=== PATIENT | female | born 1985 | race Caucasian/White ===

== ENCOUNTER 2021-03-06 00:47 | Observation (INO) | payer OTHER, SELFPAY ==
--- NOTE | 2021-03-06 01:00 | PC.NURSE ---
This patient, Purvi Medina, admitted to the OB room Labor/Delivery/Recovery 105 for observation. Patient/family oriented to hospital policies and general routines including ID bracelet, bed and alarms, visiting hours, pain management, procedures, bathroom and other care routines, personal items, smoking policy, room service/diet, and visiting hours. Patient/Family are encouraged to report perceived risks to care and to ask questions if they do not understand what they are told or what they should do.
[2021-03-06 01:10] VITALS: BMI 32.2
--- NOTE | 2021-03-06 01:15 | PC.NURSE ---
Pt states she had pain in abdomen since yesterday. Pt concerned that when she cleaned her umbilicus area something from the babies umbilical cord came out . States this made her very nauseated and has never happened with in past. Reassurance given to pt that there is no correlation with her umbilicus and babies. Abdomen soft and non tender. States loose stool, No constipation. No fever.
[2021-03-06 01:52] VITALS: BP 99/55; PULSE 81
--- NOTE | 2021-03-06 02:00 | PC.NURSE ---
Cervix closed. Occasional contraction with irritability. Abdomen soft. Dr. Suero advised of pt assessment. Will discharge home. Pt to call office for follow up (missed last appointment) and pt to return to OB for NST.
--- NOTE | 2021-03-09 15:55 | PM.OBTRLD ---
OB - Triage/Final Diagnosis Visit Information Comments/Additional reasons for admission: I have assessed the risk for this patient, Purvi Medina, and determined that she would benefit from observation care. Final Diagnosis (1) Vaginal discharge during : Code(s): O26.899 - Other specified related conditions, unspecified trimester; N89.8 - Other specified noninflammatory disorders of vagina Status: Acute
== END 2021-03-06 02:10 | disposition home or self-care (01) ==
PROVIDERS: Admitting Provider Obstetrics & Gynecology; PCP Obstetrics & Gynecology; Visit Provider Obstetrics & Gynecology
DX: O26.899 Other specified pregnancy related conditions, unspecified trimester (principal); N89.8 Other specified noninflammatory disorders of vagina; Z3A.00 Weeks of gestation of pregnancy not specified
CPT/HCPCS: G0378; G0379

== ENCOUNTER 2021-03-07 13:18 | Outpatient (RCR) | payer OTHER, SELFPAY ==
[2021-03-07 14:34] VITALS: BP 106/61; PULSE 95
== END 2021-04-04 10:06 | disposition home or self-care (01) ==
LOC: ANHOBOP 13:18
PROVIDERS: PCP Obstetrics & Gynecology; Visit Provider Obstetrics & Gynecology
DX: O09.293 Supervision of pregnancy with other poor reproductive or obstetric history, third trimester (principal); Z3A.35 35 weeks gestation of pregnancy
CPT/HCPCS: 59025

== ENCOUNTER 2021-03-15 14:52 | Emergency (ER) | payer OTHER, SELFPAY ==
[2021-03-15 15:06] VITALS: BP 119/71; PULSE 107; RESP 16; TEMP 37.1; O2SAT 100
[2021-03-15 15:33] LABS: Basophils Percent Auto 0.1 % (0.2-1.2); Eosinophils Percent Auto 0.1 % (0-4.4); Hematocrit 34.9 % (37.0-47.0); Hemoglobin 11.7 g/dL (12.0-15.0); Immature Granulocyte Absolute 0.07 K/mm3 (0.00-0.031); Lymphocytes Absolute Auto 1.08 K/mm3 (0.9-3.2); Lymphocytes Percent Auto 15.9 % (18.3-44.2); Mean Corpuscular HGB Conc 33.5 g/dl (32-36); Mean Corpuscular Hemoglobin 31.3 pg (26-34); Mean Corpuscular Volume 93.3 fl (80-100); Mean Platelet Volume 10.1 fl (7.4-10.4); Monocytes Absolute Auto 0.2 K/mm3 (0.1-0.6); Monocytes Percent Auto 3.4 % (2.6-8.5); Neutrophils Absolute Auto 5.4 K/mm3 (1.3-6.7); Neutrophils Percent Auto 79.5 % (45.5-73.1); Platelet Count Result 220 k/mm3 (150-375); Red Blood Count 3.74 M/mm3 (4.2-5.4); Red Cell Distribution Width 13.3 % (11.5-14.5); White Blood Count 6.8 K/mm3 (4.5-10.0)
[2021-03-15 15:41] LABS: Alanine Aminotransferase 11 U/L (4-35); Albumin Level 3.7 g/dL (3.5-5.1); Alkaline Phosphatase 191 U/L (38-126); Anion Gap 10 mmol/L (8-16); Aspartate Amino Transferase 23 U/L (14-36); Bilirubin,Total 0.4 mg/dL (0.2-1.3); Blood Urea Nitrogen 4 mg/dL (7-17); Calcium 8.3 mg/dL (8.4-10.2); Carbon Dioxide 18 mmol/L (22-30); Chloride 102 mmol/L (98-107); Estimated CRCL calculation 130 ml/min; Estimated Glomerular Filt Rate > 60; Glucose 117 mg/dL (65-110); Lipase 91 U/L (23-300); Potassium 3.1 mmol/L (3.4-5.0); Sodium 130 mmol/L (137-145)
[2021-03-15] MEDS: SODIUM CHLORIDE 0.9% IV 1,000 ML 999 ML IV CONT (16:30)
--- NOTE | 2021-03-15 16:37 | ED.NAVMDI ---
HPI - Nausea/Vomiting/Diarrhea General Chief complaint: Nausea/Vomiting/Diarrhea Stated complaint: nausea, vomiting- 9mo Time Seen by Provider: 03/15/21 16:10 Source: patient Mode of arrival: ambulatory Limitations: no limitations History of Present Illness HPI Narrative: Patient is a 36-year-old female who is 9 months complaining of nausea and vomiting nonbilious nonbloody accompanied by diarrhea for the past 2 days. Patient denies any chest pain, shortness of breath, abdominal pain, vaginal bleeding or discharge. Positive for gross movement. Denies any spontaneous rupture membranes. Related Data Allergies Allergy/AdvReac Type Severity Reaction Status Date / Time latex Allergy Mild Unknown Verified 03/15/21 16:20 Review of Systems Review of Systems: All systems reviewed & are unremarkable except as noted in HPI and below Constitutional: Constitutional: Denies body ache(s), Denies chills, Denies excessive sweating, Denies fatigue, Denies fever(s), Denies headache(s), Denies lethargy, Denies malaise, Denies weakness and Denies weight loss Eyes: Eyes: Denies blurry vision, Denies change in vision and Denies loss of vision ENT: Denies dizziness, Denies ear discharge, Denies headache(s), Denies lip swelling, Denies epistaxis, Denies nasal congestion, Denies neck pain, Denies throat swelling and Denies tongue swelling Cardiovascular: Cardiovascular: Denies chest pain, Denies chest pain at rest, Denies chest pain with activity, Denies diaphoresis, Denies rapid heart rate, Denies edema, Denies irregular heart rhythm, Denies lightheadedness, Denies palpitations, Denies dyspnea and Denies dyspnea on exertion Respiratory: Respiratory: Denies chest congestion, Denies cough, Denies hemoptysis, Denies dyspnea and Denies dyspnea on exertion Gastrointestinal: Gastrointestinal: Denies abdominal pain, Denies melena, Denies hematochezia, Denies diarrhea and Denies hematemesis Musculoskeletal: Musculoskeletal: Denies abnormal gait, Denies deformity, Denies joint swelling, Denies limited range of motion, Denies neck pain and Denies numbness Neurologic: Denies Abnormal speech present, Denies abnormal gait, Denies confusion, Denies dizziness, Denies headache(s), Denies focal weakness, Denies loss of vision, Denies numbness, Denies Other visual disturbances, Denies Sensory deficit (Neuro) and Denies weakness Psychiatric: Psychiatric: Denies confusion, Denies depression, Denies auditory hallucinations, Denies homicidal ideation and Denies suicidal ideation Endocrine: Endocrine: Denies cold intolerance, Denies excessive sweating, Denies fatigue, Denies heat intolerance and Denies palpitations Hematologic/Lymphatic: Hematologic/Lymphatic: Denies easy bleeding and Denies easy bruising Allergic/Immunologic: Allergic/Immunologic: Denies lip swelling, Denies throat swelling and Denies tongue swelling PMFSH Comments Past medical history: None Family history: Noncontributory Social history: Non-smoker no EtOH or drug use Exam Const: General: cooperative, healthy appearing, comfortable, no acute distress, well developed, alert and awake; No confusion Orientation/consciousness: oriented to person, oriented to place, oriented to time, patient oriented x3 and No confusion Limitations: no limitations HENMT: Head: normal to inspection, normocephalic and atraumatic Ears: hearing grossly normal bilaterally, TM normal on the right and TM normal on the left General nose exam: Normal external nose present, Normal nares present and No nasal discharge present Face and sinus: normal facial exam Mouth: Yes Normal oral and palatal mucosa present, Yes lip normal, Yes tongue normal and Yes oropharynx normal Throat: posterior oropharynx normal, tonsils normal and uvula midline Eyes: General: appearance normal, both eyes and all related structures Pupils: Equal, round and reactive pupils present EOM: EOMs intact bilaterally Neck: Neck: normal visual
[2021-03-15 16:40] LABS: Add Urine Microscopic? YES; Appearance Urine Cloudy (Clear); Bacteria Urine Trace /hpf; Bilirubin Urine 1+ (Negative); Color Urine Amber (Yellow); Glucose Urine UA Negative (Negative); Ketones Urine 2+ mg/dL (Negative); Leukocyte Esterase Ur 1+ LEU/UL (Negative); Mucus Urine Heavy /lpf; Nitrate Urine Negative (Negative); Protein Urine 2+ mg/dL (Negative); Specific Grav Ur 1.026 (1.001-1.035); Squamous Epithelial Cell Urine Many /hpf (Few); WBC Urine 21-30 /hpf
[2021-03-15 17:16] LABS: Blood Urine Negative (Negative)
[2021-03-15] MEDS: PROMETHAZINE HCL 25 MG/ML AMPUL 12.5 MG IV PUSH (17:17)
[2021-03-15] MEDS: POTASSIUM CHLORIDE 20 MEQ PACKET (FOR LIQUID) 40 MEQ PO (18:19)
[2021-03-15 19:23] VITALS: BP 108/62; PULSE 88; RESP 18; O2SAT 96
[2021-03-16 18:23] LABS: SARS-CoV-2 RNA PCR Positive
== END 2021-03-15 19:23 | disposition home or self-care (01) ==
PROVIDERS: Emergency Medicine; Emergency Provider Emergency Medicine; PCP Obstetrics & Gynecology
DX: O98.513 Other viral diseases complicating pregnancy, third trimester (principal); U07.1 COVID-19; O99.613 Diseases of the digestive system complicating pregnancy, third trimester; K52.9 Noninfective gastroenteritis and colitis, unspecified; O23.43 Unspecified infection of urinary tract in pregnancy, third trimester; Z3A.00 Weeks of gestation of pregnancy not specified
CPT/HCPCS: 36415; 80053; 81001; 83690; 85025; 87086; 87088; 96361; 96374; 99284; A9270; C9803; J2550; J7030; U0003; U0005

== ENCOUNTER 2021-03-22 16:28 | Inpatient (IN) | payer OTHER, SELFPAY ==
[2021-03-22] VITALS (18 sets, daily range): BP systolic 88–148; BP diastolic 41–123; PULSE 76–157; RESP 18; TEMP 36.3–37; O2SAT 100; BMI 32.4
--- NOTE | 2021-03-22 17:23 | LDADM ---
This patient, Purvi Medina, was admitted to Labor/Delivery/Recovery 106 on 03/22/21 at 16:28. Plans for labor, pain management and were discussed with patient. Patient/family oriented to hospital policies and general routines including ID bracelet, bed and alarms, visiting hours, pain management, procedures, bathroom and other care routines, personal items, smoking policy, room service/diet and guest tray routines, security routines, and visiting hours. Patient/Family are encouraged to report perceived risks to care and to ask questions if they do not understand what they are told or what they should do. See OBIX for further documentation.
--- NOTE | 2021-03-22 17:25 | WPDANESEPP ---
Anes - Eval Pre Procedure Date/Time: 03/22/21 17:25 Pre Op Diagnosis: ror Patient Data Age: 36 Gender: F Height: Weight: Last Vital Signs Pulse 105 H 03/22/21 16:46 BP 115/61 03/22/21 16:46 Allergies Allergy/AdvReac Type Severity Reaction Status Date / Time latex Allergy Mild Unknown Verified 03/15/21 16:20 Home Medications Medication Instructions Recorded Confirmed Type vit no.[id number] 1 tablet PO DAILY 03/22/21 03/22/21 History [Classic ] Patient hx anesthesia problems: none Family hx anesthesia problems: none PMFSH Past Medical History Medical History Drug abuse Limited care Overweight (BMI 25.0-29.9) and not yet delivered Social History Social History Smoking packs per day: 1 Smoking cigarettes per day: 20.0 Smoking status: Current every day smoker Substance use: current Substance use type: marijuana Spiritual care concerns: No Exam Day of Procedure 03/22/21 17:25 Patient weight: overweight Airway: Mallampati scale class II Neurological: alert and oriented
[2021-03-22 17:35] LABS: Basophils Percent Auto 0.3 % (0.2-1.2); Eosinophils Absolute Auto 0.1 K/mm3 (0-0.3); Eosinophils Percent Auto 1.3 % (0-4.4); Hematocrit 31.2 % (37.0-47.0); Hemoglobin 10.4 g/dL (12.0-15.0); Immature Granulocyte Absolute 0.06 K/mm3 (0.00-0.031); Immature Granulocyte Percent A 0.8 % (0-0.5); Lymphocytes Absolute Auto 1.47 K/mm3 (0.9-3.2); Mean Corpuscular HGB Conc 33.3 g/dl (32-36); Mean Corpuscular Hemoglobin 31.8 pg (26-34); Mean Corpuscular Volume 95.4 fl (80-100); Mean Platelet Volume 10.2 fl (7.4-10.4); Monocytes Absolute Auto 0.4 K/mm3 (0.1-0.6); Monocytes Percent Auto 4.8 % (2.6-8.5); Neutrophils Absolute Auto 5.7 K/mm3 (1.3-6.7); Neutrophils Percent Auto 73.8 % (45.5-73.1); Platelet Count Result 278 k/mm3 (150-375); Red Blood Count 3.27 M/mm3 (4.2-5.4); Red Cell Distribution Width 13.5 % (11.5-14.5); White Blood Count 7.7 K/mm3 (4.5-10.0)
[2021-03-22] MEDS: LACTATED RINGERS 1,000 ML 125 ML IV CONT ×2 (17:36→21:14)
[2021-03-22] MEDS: OXYTOCIN 30 UNITS/NS 500 ML 30 UNITS/500 ML BAG IV CONT (17:40)
[2021-03-22] MEDS: AMPICILLIN 2 GM/NS 100 ML 2 GM/100 ML BAG IVPB (17:40)
[2021-03-22 18:00] LABS: Amphetamine Screen Urine Negative (Negative); Barbiturate Screen Urine Negative (Negative); Benzodiazepines Screen Urine Negative (Negative); Cannabinoid Screen Urine Positive (Negative); Cocaine Screen Urine Negative (Negative); Methadone Screen Urine Negative (Negative); Opiate Screen Urine Negative (Negative); Phencyclidine Screen Urine Negative (Negative)
--- NOTE | 2021-03-22 18:12 | PM.IMHP ---
H&P: HPI History of Present Illness Date/Time: 03/22/21 18:12 36yo at 37w 1d presenting with leaking of fluid since 1100. Limited care, only 2 visits in office. She is comfortable, not feeling any contractions. Good movement. COVID+ on 03/15. No symptoms today. Chief Complaint: Leaking of fluid Review of Systems Constitutional: Constitutional: Reports no additional constitutional complaints Cardiovascular: Cardiovascular: Reports no additional cardiovascular complaints Respiratory: Respiratory: Reports no additional respiratory complaints Gastrointestinal: Gastrointestinal: Reports no additional gastrointestinal complaints Genitourinary: Genitourinary: Reports no additional female genitourinary complaints Musculoskeletal: Musculoskeletal: Reports no additional musculoskeletal complaints Integumentary/Breasts: Skin/Breast: Reports system reviewed and no additional complaints, except as docu Neurologic: Reports system reviewed and no additional complaints, except as documented Psychiatric: Psychiatric: Reports no additional psychiatric complaints Endocrine: Endocrine: Reports no additional endocrine complaints Hematologic/Lymphatic: Hematologic/Lymphatic: Reports no additional hematologic/lymphatic complaints Allergic/Immunologic: Allergic/Immunologic: Reports no additional allergic/immunologic complaints [facility] Past Medical History Medical History (Updated 03/22/21 @ 18:17 by Shaan Lares DO) Drug abuse Limited care Overweight (BMI 25.0-29.9) and not yet delivered Social History Social History (Updated 03/22/21 @ 18:15 by Shaan Lares DO) Smoking packs per day: 1 Smoking cigarettes per day: 20.0 Smoking status: Current every day smoker Substance use: current Substance use type: marijuana Spiritual care concerns: No Meds Home Medications and Allergies Home Medications Medication Instructions Recorded Confirmed Type vit no.[id number] 1 tablet PO DAILY 03/22/21 03/22/21 History [Classic ] Allergies Allergy/AdvReac Type Severity Reaction Status Date / Time latex Allergy Mild Unknown Verified 03/15/21 16:20 Vital Signs Vital Signs - 24 hr 03/22/21 16:46 03/22/21 17:46 03/22/21 18:01 Pulse Rate 105 H 83 84 Blood Pressure 115/61 94/75 L 107/81 Exam Const: General: cooperative, healthy appearing, comfortable, no acute distress, well developed, alert, awake and Physically active Resp: Effort & Inspection: normal respiratory effort, able to speak in complete sentences, no audible wheezes and no cough Cardio: Rate: regular rate GI: Inspection: normal to inspection GI Palp: No abdominal tenderness and No Tenderness to palpation present (GI) Other: gravid Neuro: General: oriented to person, oriented to place and oriented to time Psych: Appearance: grossly normal Mental Status: mental status grossly normal Speech and movement: Normal speech and movement present Affect: normal affect Attitude: cooperative Thought process: Normal thought process present Thought content: Yes Normal thought content present Insight: Good insight present (Psych) Judgement: Good judgement present (Psych) H&P: Results Labs Labs: Short CBC 03/22/21 Range/Units 17:02 WBC 7.7 (4.5-10.0) K/mm3 Hgb 10.4 L (12.0-15.0) g/dL Hct 31.2 L (37.0-47.0) % Plt Count 278 (150-375) k/mm3 Assessment and Plan Assessment and plan (1) COVID-19 affecting in third trimester: Code(s): O98.513 - Other viral diseases complicating , third trimester; U07.1 - COVID-19 Status: Acute Assessment and Plan: Positive test reported by patient on 03/15. Asymptomatic today. (2) Limited care: Code(s): O09.30 - Supervision of with insufficient care, unspecified trimester Status: Acute (3) PROM (premature rupture of membranes): Code(s): O42.90 - Pre
--- NOTE | 2021-03-22 18:18 | WPDHPUPDATE1 ---
History and Physical Update Update Date/Time: 03/22/21 18:18 History and Physical has been reviewed, including an updated exam of the patient. There are NO changes in the patient's condition. Risks, benefits, and alternatives have been discussed and questions answered. Patient agrees to proceed with procedure.
[2021-03-22 18:27] LABS: HIV 1/2 Ab P24 Ag Result Negative (Negative)
[2021-03-22 18:37] LABS: Rubella IgG Antibody 57.6 IU/ML
[2021-03-22 18:40] LABS: Hepatitis B Surface Antigen Negative (Negative)
[2021-03-22 18:58] LABS: Hepatitis C Virus Antibody Negative (Negative)
[2021-03-22] MEDS: fentaNYL CITRATE INJ (*CRX) 100 MCG/2 ML VIAL 50 MCG IV PUSH (21:15)
[2021-03-22] MEDS: AMPICILLIN 1 GM/NS 50 ML 1 GM/50 ML BAG IVPB (21:24)
--- NOTE | 2021-03-22 22:48 | P.PCNOB_ITS ---
OB - Delivery Note Procedure Delivery date: 03/22/21 Procedure: Normal spontaneous vaginal delivery events: Premature Rupture of Membrane Intrapartal events: None Induction method: per pitocin protocol Delivery augmentation: pitocin Delivery monitor: external FHT and external uterine Route of delivery: Laceration Description: None Specimen: Yes Quantitative Blood Loss (ml): 200 Anesthesia type: None Narrative: Once she was noted to be complete and ready to push, the labor bed was broken down and legs were placed in stirrups for support. With contractions and maternal efforts, the presented in PETER position. The head was delivered. Checked for nuchal cord, loose nuchal cord x1 noted. Gentle downward traction was applied and the anterior shoulder delivered without issues, f ollowed by the posterior shoulder and rest of the body. was vigorous and crying, so delayed cord clamping of approximately 1 minute was performed. The cord was clamped and cut. Cord gasses collected. Placenta was delivered spontaneously. IV oxytocin administered and fundal massage applied. Exam was performed to identify any lacerations. No lacerations noted. Good hemostasis noted. Patient tolerated the procedure well. All instrument and sponge counts were correct at the end of the procedure. [place] Baby Date of : 03/22/21 Time of : 22:33 Weeks of gestation at delivery: 37 gender: Male Weight (pounds): 6 Weight (ounces): 1 presentation: vertex position: Right Occiput Anterior Placenta delivery description: Spontaneous cord vessel description: 3 Vessels score one minute: 9 score five minutes: 9
[2021-03-22] MEDS: OXYTOCIN 30 UNITS/NS 500 ML 30 UNITS/500 ML BAG 125 UNITS IV CONT (23:10)
[2021-03-23] VITALS (7 sets, daily range): BP systolic 107–125; BP diastolic 51–81; PULSE 60–83; RESP 16–18; TEMP 36.4–36.9; O2SAT 98–100
--- NOTE | 2021-03-23 01:18 | OBPPTRN ---
Patient transferred to post room #280 via wheelchair. Support person, Wanda, present. Oriented to unit, room, information board, rooming in, admission packet and security measures. Patient verbalizes understanding.
[2021-03-23] MEDS: BENZOCAINE 20% AER SPR (*SP) 56 GM CAN 1 SPRAY TOPICAL (02:00)
[2021-03-23] MEDS: WITCH HAZEL 40 PADS 1 PAD TOPICAL (02:00)
[2021-03-23] MEDS: ACETAMINOPHEN 325 MG TABLET 650 MG PO ×2 (02:00→23:47)
[2021-03-23] MEDS: IBUPROFEN 600 MG TABLET PO ×3 (04:50→23:47)
[2021-03-23 05:20] LABS: Hematocrit 30.2 % (37.0-47.0); Hemoglobin 10.1 g/dL (12.0-15.0)
[2021-03-23 09:47] LABS: Rapid Plasma Reagin Non-Reactive (NonReactive)
--- NOTE | 2021-03-23 10:43 | PM.OBPNVD ---
OB - PN: Subj Subjective Date/time seen: 03/23/21 10:43 36yo s/p on 03/22. Doing well this morning. Pain is controlled and lochia is minimal. Denies chest pain, SOB, dizziness upon standing. Denies fevers, chills, coughs. OB - PN: Obj Data Labs CBC & Chem 7: 03/23/21 05:03 Labs: Laboratory Results - last 24 hr 03/22/21 03/22/21 03/22/21 17:02 17:02 17:02 WBC 7.7 RBC 3.27 L Hgb 10.4 L Hct 31.2 L MCV 95.4 MCH 31.8 MCHC 33.3 RDW 13.5 Plt Count 278 MPV 10.2 Immature Gran % (Auto) 0.8 H Neut % (Auto) 73.8 H Lymph % (Auto) 19.0 Ashley % (Auto) 4.8 Eos % (Auto) 1.3 Baso % (Auto) 0.3 Lymph # (Auto) 1.47 Ashley # (Auto) 0.4 Eos # (Auto) 0.1 Baso # (Auto) 0.0 Abs Immat Gran (auto) 0.06 H Absolute Neuts (auto) 5.7 Absolute Nucleated RBC 0.0 Nucleated RBC % 0.0 Urine Opiates Screen Urine Methadone Screen Ur Barbiturates Screen Ur Phencyclidine Scrn Ur Amphetamine Screen U Benzodiazepines Scrn Urine Cocaine Screen U Cannabinoids Screen RPR Hep Bs Antigen Hepatitis C Ab Screen HIV 1&2 Ab/P24 Ag 4thGn Negative Rubella IgG Antibody 57.6 Blood Type Antibody Screen 03/22/21 03/22/21 03/22/21 17:02 17:02 17:02 WBC RBC Hgb Hct MCV MCH MCHC RDW Plt Count MPV Immature Gran % (Auto) Neut % (Auto) Lymph % (Auto) Ashley % (Auto) Eos % (Auto) Baso % (Auto) Lymph # (Auto) Ashley # (Auto) Eos # (Auto) Baso # (Auto) Abs Immat Gran (auto) Absolute Neuts (auto) Absolute Nucleated RBC Nucleated RBC % Urine Opiates Screen Negative Urine Methadone Screen Negative Ur Barbiturates Screen Negative Ur Phencyclidine Scrn Negative Ur Amphetamine Screen Negative U Benzodiazepines Scrn Negative Urine Cocaine Screen Negative U Cannabinoids Screen Positive A RPR Non-reactive Hep Bs Antigen Hepatitis C Ab Screen HIV 1&2 Ab/P24 Ag 4thGn Rubella IgG Antibody Blood Type O Positive Antibody Screen Negative 03/22/21 03/22/21 03/23/21 17:02 17:02 05:03 WBC RBC Hgb 10.1 L Hct 30.2 L MCV MCH MCHC RDW Plt Count MPV Immature Gran % (Auto) Neut % (Auto) Lymph % (Auto) Ashley % (Auto) Eos % (Auto) Baso % (Auto) Lymph # (Auto) Ashley # (Auto) Eos # (Auto) Baso # (Auto) Abs Immat Gran (auto) Absolute Neuts (auto) Absolute Nucleated RBC Nucleated RBC % Urine Opiates Screen Urine Methadone Screen Ur Barbiturates Screen Ur Phencyclidine Scrn Ur Amphetamine Screen U Benzodiazepines Scrn Urine Cocaine Screen U Cannabinoids Screen RPR Hep Bs Antigen Negative Hepatitis C Ab Screen Negative HIV 1&2 Ab/P24 Ag 4thGn Rubella IgG Antibody Blood Type Antibody Screen OB - PN A/P Assessment and Plan (1) (normal spontaneous vaginal delivery): Code(s): O80 - Encounter for full-term uncomplicated delivery Status: Acute Assessment and Plan: Routine care Pain management Ambulate (2) COVID-19 affecting in third trimester: Code(s): O98.513 - Other viral diseases complicating , third trimester; U07.1 - COVID-19 Status: Acute (3) Limited care: Code(s): O09.30 - Supervision of with insufficient care, unspecified trimester Status: Acute Assessment and Plan: Care coordination consult Time Spent With Patient Time: Total time spent is greater than 50% in coordination of care (as documented) at patient's floor/unit and/or counseling patient: Exam Const: General: cooperative, healthy appearing, comfortable, no acute distress, well developed, alert, awake and Physically active Orientation/consciousness: oriented to person, oriented to place and oriented to ti
--- NOTE | 2021-03-23 13:23 | PCCCNOTE ---
Received consult: positive THC on admission. Spoke to pt. over the phone due to COVID precautions; she is COVID positive. No urine drug screen on baby boy, meconium is pending. Pt. confirms using marijuana for appetite. She obtains it from dispensary. She states that her Dr. was aware. She currently lives with her Mother (Wanda Cardenas), Mothers significant other (Tushar Parsons) and her 3 children, ages 15, 11 and 10. She plans to return their home when discharged and her mother will transport her home. She states father of baby (Justen Seymour) will be staying with them soon. She does not disclose where he is but indicates not having concerns regarding this. Her care was limited due to not having transportation. She now states that her mother is assisting her with transportation needs and it is no longer a concern. She states not having any previous history with DCFS. She is on WIC. Reported her situation to DCFS and it does not meet criteria for investigation. It does qualify for child welfare referral to offer services/provide support. (Intake ID#[id number]). I also provided additional resources to be given along with discharge instructions. Nursing aware of above and in agreement. No further care coordination needs indicated at this time.
[2021-03-23] MEDS: TETANUS,DIPHTHERIA,AC PERTUSSIS ADULT (0.5 ML) BOOSTRIX IM (16:38)
[2021-03-24] MEDS: IBUPROFEN 600 MG TABLET PO (09:45)
[2021-03-24 09:50] VITALS: BP 121/80; PULSE 74; RESP 20; TEMP 36.7
--- NOTE | 2021-03-24 12:17 | P.DS_ITS ---
DS: Admitting Diagnosis Admitting Diagnosis PROM DS: Discharge Diagnosis Discharge Diagnosis (1) (normal spontaneous vaginal delivery): Code(s): O80 - Encounter for full-term uncomplicated delivery Status: Acute Assessment and Plan: Routine care Pain management Ambulate (2) COVID-19 affecting in third trimester: Code(s): O98.513 - Other viral diseases complicating , third trimester; U07.1 - COVID-19 Status: Acute (3) Limited care: Code(s): O09.30 - Supervision of with insufficient care, unspecified trimester Status: Acute Assessment and Plan: Care coordination consult OB - DS: Summary OB Procedures : None OB Procedures Intrapartum: Spontaneous Vag Delivery OB Procedures: : None Time Spent with Patient Time attestation: Total time spent providing and/or coordinating discharge services: Exam Const: General: cooperative, healthy appearing, comfortable, no acute distress, well developed, alert, awake and Physically active Orientation/consciousness: oriented to person, oriented to place and oriented to time Resp: Effort & Inspection: normal respiratory effort, able to speak in complete sentences, no audible wheezes and no cough Cardio: Rate: regular rate GI: Inspection: normal to inspection GI Palp: No abdominal tenderness, Yes Soft to palpation, No Firmness to palpation present (GI), No Tenderness to palpation present (GI) and No Guarding due to palpation present (GI) Other: Fundus firm below umbilicus Neuro: General: oriented to person, oriented to place and oriented to time Psych: Appearance: grossly normal Mental Status: mental status grossly normal Speech and movement: Normal speech and movement present Affect: normal affect Attitude: cooperative Thought process: Normal thought proce ss present Insight: Good insight present (Psych) Judgement: Good judgement present (Psych) DS: Data Data Completed and Pending Pending studies at discharge: Pending at discharge 03/22/21 22:40 Surgical [PTH] Routine Discharge Plan Discharge Attending physician on discharge: Shaan Lares Discharging Clinician: Shaan Lares Patient Disposition: Home, Self-Care Activity: may shower, no straining, as tolerated and pelvic rest Diet: regular Patient Instructions: Antibiotic Form Stand Alone Forms: General Discharge Information Follow-up/Referrals: Yulia Suero MD [Primary Care Provider] - Discharge Medications: New docusate sodium 100 mg Capsule 100 mg PO BID PRN (Reason: Constipation) Qty: 60 RF: 0 ibuprofen 600 mg Tablet 600 mg PO Q6H PRN (Reason: Cramping) Qty: 90 RF: 0 Continued Classic 28 mg iron- 800 mcg Tablet 1 tablet PO DAILY RF: 0 Date of admission: 03/22/21 16:28 Primary Care Provider: Yulia Suero Admitting Provider: Yulia Suero Attending physician on admission: Yulia Suero Condition: Stable
== END 2021-03-24 14:05 | disposition home or self-care (01) | DRG 560 ==
LOC: ANHOBOP 16:34 → ANHLDR 22:54 → ANHOB2 03-23 17:24 → ANHLDR 03-28 06:59 → ANHOB2 03-28 06:59
PROVIDERS: Admitting Provider Obstetrics & Gynecology; PCP Obstetrics & Gynecology; Visit Provider Obstetrics & Gynecology
DX: O98.52 Other viral diseases complicating childbirth (principal); U07.1 COVID-19; O69.81X0 Labor and delivery complicated by cord around neck, without compression, not applicable or unspecified; O62.3 Precipitate labor; Z3A.37 37 weeks gestation of pregnancy; Z37.0 Single live birth
CPT/HCPCS: 36415; 80307; 85014; 85018; 85025; 86592; 86703; 86762; 86803; 86850; 86900; 86901; 87340; 88307; 90715; A9270; G0432; J0290; J2590; J3010; J7120